=== PATIENT | female | born 1970 | race Caucasian/White ===

== ENCOUNTER 2025-03-04 12:54 | Emergency (ER) | payer MEDICAID, SELFPAY ==
[2025-03-04 13:28] VITALS: BP 168/81; PULSE 81; RESP 20; TEMP 36.6; O2SAT 95; BMI 27.0
--- NOTE | 2025-03-04 13:29 | XR_ITS ---
Examination: PA lateral chest 2 views TECHNIQUE: Upright PA lateral chest 2 views Exam date and time: March 04, 2025 1438 hours Comparison March 17, 2023 INDICATIONS: Shortness of breath beginning one month ago. FINDINGS: Moderate hyperexpansion Minor prominence left ventricle Accentuation basilar bronchovascular markings Subsegmental atelectasis left base No pneumonia IMPRESSION: COPD Basilar bronchitis pattern
--- NOTE | 2025-03-04 13:30 | EDRME_ITS ---
Rapid [facility] Screening Ex[facility] Arrival date/time: 03/04/25 12:54 55-year-old female with history of hypertension presents to the emergency room with a chief complaint of shortness of breath x 1 week. Patient denies any fevers coughing or congestion. I have greeted and performed a focused initial assessment of this patient. A comprehensive ED assessment and evaluation of the patient, analysis of all test results, and completion of the medical decision making process will be conducted by additional ED providers. Chief Complaint: Shortness of Breath/Dyspnea Vital signs: Vital Signs Temperature 97.8 F 03/04/25 13:28 Pulse Rate 81 03/04/25 13:28 Respiratory Rate 20 03/04/25 13:28 Blood Pressure 168/81 H 03/04/25 13:28 Pulse Oximetry (%) 95 03/04/25 13:28 Oxygen Delivery Method Room Air 03/04/25 13:28 Vital signs reviewed by provider: Yes
[2025-03-04 14:02] LABS: Basophils # (Auto) 0.1 Thou/mm3 (0.0-0.2); Basophils % (Auto) 1 % (0-2.5); Eosinophils # (Auto) 0.1 Thou/mm3 (0.0-0.5); Eosinophils % (Auto) 1 % (0-10); Hematocrit 41.5 % (36.0-46.0); Hemoglobin 13.7 g/dL (12.0-16.0); Immature Granulocytes % (Auto) 0 % (0-0); Immature Granulocytes Auto 0.02 Thou/mm3 (0.00-0.00); Lymphocytes % (Auto) 40 % (10-50); Mean Corpuscular Hemoglobin 31.7 pg (25.0-35.0); Mean Corpuscular Volume 96 fL (80-100); Monocytes # (Auto) 0.5 Thou/mm3 (0.0-0.8); Monocytes % (Auto) 5 % (0-12); Neutrophils # (Auto) 5.3 Thou/mm3 (1.8-7.7); Neutrophils % (Auto) 53 % (37-80); Nucleated Red Blood Cell % 0 /100 WBC (0); Platelet Count 335 Thou/mm3 (140-440); Red Blood Count 4.32 Miln/mm3 (4.00-5.20); White Blood Count 9.9 Thou/mm3 (3.6-11.0)
[2025-03-04 14:25] LABS: Alanine Aminotransferase 20 U/L (10-49); Albumin/Globulin Ratio 1.9 (1.2-2.2); Alkaline Phosphatase 83 U/L (46-116); Anion Gap 3 (7-16); Aspartate Amino Transferase 20 U/L (0-34); BUN/Creatinine Ratio 13 Ratio (12-20); Bilirubin,Total 0.2 mg/dL (0.3-1.2); Blood Urea Nitrogen 10 mg/dL (9-23); Calcium 9.9 mg/dL (8.3-10.6); Calcium (Corrected) 9.9 mg/dL (8.5-10.1); Carbon Dioxide 34.1 mMol/L (20.0-31.0); Chloride 105 mMol/L (98-107); Creatinine (Component) 0.8 mg/dL (0.6-1.3); Estimated Creatinine Clearance 89.3 mL/min (>60); Globulin 2.6 gm/dL (2.3-3.5); Glucose 101 mg/dL (74-106); Osmolality,Calculated 282 (275-295); Potassium 5.2 mMol/L (3.4-5.1); Sodium 142 mMol/L (136-145); Total Protein 7.6 gm/dL (5.7-8.2); eGFR > 60 See Note
--- NOTE | 2025-03-04 19:50 | PC.NURSE ---
na x 1 1944.
--- NOTE | 2025-03-04 20:07 | PC.NURSE ---
[facility]
== END 2025-03-04 22:26 | disposition left against medical advice (07) ==
PROVIDERS: Nurse Practitioner Family; Emergency Provider Family Medicine; PCP Psychiatry & Neurology Child & Adolescent Psychiatry
DX: R06.02 Shortness of breath (principal); I10 Essential (primary) hypertension; Z53.29 Procedure and treatment not carried out because of patient's decision for other reasons
CPT/HCPCS: 36415; 71046; 80053; 85025; 99281